=== PATIENT | male | born 1970 | race American Indian/Alaskan Native ===

== ENCOUNTER 2021-12-11 10:14 | Day surgery (SDC) | payer BC, MEDICARE ==
[~2021-12-11 10:14] MED LIST: SODIUM CHLORIDE 0.9% 1000 ML 1,000 ML IV SCH
--- NOTE | 2021-12-11 12:35 | Anesthesia Day of Surgery ---
Anesthesia Day of Surgery - Day of Surgery Patient Examined: Yes Patient H&P Reviewed: Yes Patient is NPO: Yes
--- NOTE | 2021-12-11 12:43 | Anesthesia Consultation ---
Anesthesia Consult and Med Hx Date of service: 12/11/21 - Airway Anesthetic Teeth Evaluation: Good ROM Head & Neck: Adequate Mental/Hyoid Distance: Adequate Mallampati Class: Class I Intubation Access Assessment: Good - Pre-Operative Health Status ASA Pre-Surgery Classification: ASA3 Proposed Anesthetic Plan: MAC (GA if needed) - Pulmonary Hx Smoking: No Hx Sleep Apnea: No - Cardiovascular System Hx Hypertension: Yes - Gastrointestinal Hx Gastroesophageal Reflux Disease: No - Endocrine Hx Renal Disease: Yes (Last PD yesterday) Hx End Stage Renal Disease: Yes - Hematic Hx Sickle Cell Disease: No - Other Systems Hx Alcohol Use: No
[2021-12-11] MEDS ORDERED: propofoL 200 MG/20 ML VIAL IV ONE ×2 (12:52→13:02)
[2021-12-11] MEDS ORDERED: ONDANSETRON 4 MG/2 ML INJ ONE (12:52)
[2021-12-11] MEDS ORDERED: fentaNYL 100 MCG/2 ML INJ ONE (12:52)
--- NOTE | 2021-12-11 13:16 | Procedure Note ---
Date of procedure: 12/11/21 Pre-op diagnosis: Epigatric Pain/ GERD Post-op diagnosis: other (No Peptic Ulcer Disease noted/ Mild to Moderate, Erosive Esophagitis/ Gastritis and Gastric Erosion/ R/O Celiac Disease) Procedure: EGD with biopsy Anesthesia: MAC Surgeon: MIRYAM RODRÍGUEZ Estimated blood loss: minimal Specimen disposition: to lab Condition: stable Disposition: same day (Treat with PPI and Reglan and avoid aspirin and NSAID for 5 days; otherwise resumepreviousmedication and F/U in 1 to 2 weeks ([phone]).)
--- NOTE | 2021-12-11 14:56 | Post Anesthesia Evaluation ---
- Post Anesthesia Evaluation Patient Participated: Yes Airway Patent: Yes Stable Respiratory Function: Yes Nausea/Vomiting: No Temp > 96.8F: Yes Pain Manageable: Yes Adequeate Hydration: Yes Anesthesia Complications: No Block Receding Appropriately: Not Applicable Patient on Ventilator: No
--- NOTE | 2021-12-11 16:15 | Operative Report ---
DATE OF SURGERY: 12/11/2021 PROCEDURE PERFORMED: EGD with biopsy. INDICATIONS: This is a 51-year-old -[place] gentleman who gives a history of epigastric pain and nausea, vomiting. EGD was done to make sure there was not any associated peptic ulcer disease. DESCRIPTION OF PROCEDURE: Procedure was done after getting informed consent with MAC anesthesia. The instrument was passed through the hypopharynx into the esophagus, which showed some [id number] erosive esophagitis. Photodocumentation and biopsy was obtained to assess for the severity of the erosive esophagitis. Stomach showed gastric erosion, gastritis, but no ulcers were noted in the straight or the retroverted view. Biopsy was done from the gastric antrum, gastric body and angularis incisura to rule out for H. pylori and atrophic gastritis. The pylorus was patent. The duodenum in the first and second portion appeared normal. Biopsy was done from the second part to rule out for possible celiac disease. ASSESSMENT: Epigastric pain, no peptic ulcer disease noted, [id number] erosive esophagitis, gastritis, rule out celiac disease. PLAN: To treat the patient with PPI and also to place the patient on Reglan. Have the patient avoid aspirin and aspirin-related products for the next few days and follow up in the office in 1-2 weeks' time. Procedure was done in the GI lab with assistance of the GI lab team, which included the GI nurse, the graphic arts technician and with the assistance of anesthesia. TID: [id number] RECEIPT: [id number] ANDREW/JOSESITO
[2021-12-11 18:04] VITALS: BP 143/90
== END 2021-12-11 10:15 | disposition home or self-care (01) ==
LOC: GIO 10:14
DX: R11.2 Nausea with vomiting, unspecified (principal); R10.13 Epigastric pain; K20.90 Esophagitis, unspecified without bleeding; K27.9 Peptic ulcer, site unspecified, unspecified as acute or chronic, without hemorrhage or perforation; K29.70 Gastritis, unspecified, without bleeding; I12.0 Hypertensive chronic kidney disease with stage 5 chronic kidney disease or end stage renal disease; N18.6 End stage renal disease; Z99.2 Dependence on renal dialysis; Z79.899 Other long term (current) drug therapy
CPT/HCPCS: 43239; 88305; J2405; J2704; J3010; J7030